=== PATIENT | female | born 1985 | race Hispanic/Latino ===

== ENCOUNTER 2023-11-22 18:19 | Observation (INO) | payer SELFPAY ==
--- NOTE | ~2023-11-22 | XR_ITS ---
EXAM: XR tibia fibula RT 2V DATE: 11/22/2023 18:36 HISTORY: cat bite to lower leg, r/o fb . COMPARISON: None available. FINDINGS: Normal mineralization. No fracture or dislocation. No lytic or blastic lesion. Joint space s are maintained. No erosion or periosteal change. Soft tissues within normal limits. IMPRESSION: No acute osseous finding in the right tibia/fibula. No radiopaque foreign body.. Reviewed, dictated and finalized at location K. IMPRESSION: No acute osseous finding in the right tibia/fibula. No radiopaque f oreign body..
--- NOTE | ~2023-11-22 | XR_ITS ---
EXAM: XR forearm RT 2V DATE: 11/22/2023 18:36 HISTORY: cat bite, r/o fb . COMPARISON: None available. FINDINGS: Normal mineralization. No fracture or dislocation. No lytic or blastic lesion. Joint space s are maintained. No erosion or periosteal change. Soft tissues within normal limits. IMPRESSION: No acute osseous finding in the right forearm. No radiopaque foreign body. Reviewed, dictated and finalized at location K. IMPRESSION: No acute osseous finding in the right forearm. No radiopaque foreig n body.
--- NOTE | 2023-11-22 18:22 | ED.ANIMALBIT ---
HPI - Animal Bite General Chief Complaint: Animal Bite <MEGHANN Jimenez Last Filed: 11/22/23 18:38> Stated Complaint: cat bite <MEGHANN Jimenez Last Filed: 11/22/23 18:38> Time Seen by Provider: 11/22/23 18:22 <MEGHANN Jimenez Last Filed: 11/22/23 18:38> Focused HPI: Patient is a 38-year-old female who presents the ED with report of cat bites. Patient is [place] speaking. [employer] utilized for assistance with translation. Patient reports she was bit by her house cat two nights ago. States it was dark outside and she accidentally stepped on her cat. She was bit in her right lower leg and sustained several scratch and bite river to her right forearm. Tetanus was updated yesterday. Today, she has developed increased pain and pressure in her lower extremity, causing her to have trouble with walking. Reports some drainage from the bite river on her leg. Denies fevers. Cat is not up-to-date on its vaccines, though has always been inside cat. Has been acting normally. GENERAL: Well-appearing, well-nourished, and in no acute distress. HEAD: Normocephalic, atraumatic. CHEST: Clear to auscultation. ?No respiratory distress. HEART: Regular rate and rhythm.? Radial pulses intact. MSK: Two large puncture wounds to R lateral lower calf, small amount of purulent drainage, surrounding erythema, skin taut and diffusely tender. Multiple small abrasions and pinpoint puncture wounds to R forearm, no significant signs of infection. No drainage from wounds on arm. NEURO: ?Alert and oriented x3. Patient screened in triage and initial orders placed.? ?Additional care and disposition to be based upon?diagnostic testing and treatment. <MEGHANN Jimenez Last Filed: 11/22/23 18:38> Source: patient <MEGHANN Jimenez Last Filed: 11/22/23 18:38> Mode of arrival: ambulatory <MEGHANN Jimenez Last Filed: 11/22/23 18:38> Limitations: no limitations <Amie Melvin PA-C - Last Filed: 11/22/23 18:38> History of Present Illness HPI narrative: patient is a 38-year-old female who presents emergency department with chief complaint of cat bites. The patient reports that on Tuesday she was bit by her family's cat and reports that she did not get started on antibiotics and has noticed swelling to her right lower extremity and her right forearm. Patient reports a low-grade fever. The patient reports that she went to the clinic and they did not start her on antibiotics but gave her a tetanus shot <Mauro Wall MD - Last Filed: 11/22/23 20:52> Related Data Allergies/Adverse Reactions: Allergies Allergy/AdvReac Type Severity Reaction Status Date / Time kiwi Allergy Unknown Verified 11/22/23 19:46 <Amie Melvin PA-C - Last Filed: 11/22/23 18:38> Review of Systems Review of Systems: A 10 system review of systems was completed on the patient and is negative except for what is stated in the HPI. Nursing and ancillary documentation was reviewed. <Mauro Wall MD - Last Filed: 11/22/23 20:52> Exam Narrative: GENERAL: Well-appearing, well-nourished, and in no acute distress. HEAD: Normocephalic, atraumatic. EYES: PERRLA and EOMI. ENT: Nares clear, no rhinorrhea or epistaxis. Mucous membranes moist. NECK: Supple. CHEST: Clear to auscultation. No respiratory distress. HEART: Regular rate and rhythm. No murmur heard. Normal peripheral pulses. ABDOMEN: Soft, nontender, nondistended, normal active bowel sounds. EXTREMITIES: Normal range of motion. No edema. SKIN: Warm, dry, no rash. there are 2 large puncture wounds to R lateral lower calf, small amount of purulent drainage, surrounding erythema, skin taut and diffusely tender. Multiple small abrasions and pinpoint puncture wounds to R forearm, no significant signs of infection. No drainage from wounds on arm. NEURO: No focal deficits. Alert and carol ann
[2023-11-22 18:23] VITALS: BP 115/88; PULSE 78; RESP 16; TEMP 36.7; O2SAT 99
[2023-11-22 18:55] LABS: Basophils Percent Auto 0.2 % (0.2-1.2); Eosinophils Absolute Auto 0.1 K/mm3 (0-0.3); Eosinophils Percent Auto 0.6 % (0-4.4); Hematocrit 40.9 % (37.0-47.0); Hemoglobin 13.3 g/dL (12.0-15.0); Immature Granulocyte Absolute 0.06 K/mm3 (0.00-0.031); Immature Granulocyte Percent A 0.4 % (0-0.5); Lymphocytes Absolute Auto 0.89 K/mm3 (0.9-3.2); Lymphocytes Percent Auto 5.5 % (18.3-44.2); Mean Corpuscular HGB Conc 32.5 g/dl (32-36); Mean Corpuscular Hemoglobin 29.1 pg (26-34); Mean Corpuscular Volume 89.5 fl (80-100); Mean Platelet Volume 10.3 fl (7.4-10.4); Monocytes Absolute Auto 0.9 K/mm3 (0.1-0.6); Monocytes Percent Auto 5.7 % (2.6-8.5); Neutrophils Absolute Auto 14.1 K/mm3 (1.3-6.7); Neutrophils Percent Auto 87.6 % (45.5-73.1); Platelet Count Result 255 k/mm3 (150-375); Red Blood Count 4.57 M/mm3 (4.2-5.4); Red Cell Distribution Width 14.8 % (11.5-14.5); White Blood Count 16.1 K/mm3 (4.5-10.0)
[2023-11-22 19:10] LABS: Anion Gap 8 mmol/L (4-12); Blood Urea Nitrogen 18 mg/dL (7-17); CRP 2.4 mg/dL (<1.0); Calcium 8.7 mg/dL (8.4-10.2); Carbon Dioxide 24 mmol/L (22-30); Chloride 106 mmol/L (98-107); Estimated CRCL calculation 98 ml/min; Estimated Glomerular Filt Rate > 60; Glucose 122 mg/dL (65-110); Potassium 3.8 mmol/L (3.4-5.0); Sodium 138 mmol/L (137-145)
[2023-11-22 19:38] VITALS: BP 109/61; PULSE 72; RESP 16; TEMP 37.2; O2SAT 99
[2023-11-22 19:44] VITALS: BP 109/61; PULSE 75; RESP 16; TEMP 37.2; O2SAT 99
[2023-11-22 19:50] LABS: Erythrocyte Sedimentation Rate 28 mm/hr (0-20)
[2023-11-22] MEDS: AMPICILLIN SULB 3 GM/NS 100 ML 3 GM/100 ML VIAL IVPB (19:57)
--- NOTE | 2023-11-22 20:27 | PM.IMHP ---
H&P: HPI History of Present Illness Date/Time: 11/22/23 20:27 Chief Complaint: cat bite Narrative: This is a 38-year-old female with can not past medical history patient presents to the emergency room due to swelling tenderness of the leg after her cat bit her this happened 3 days ago. Patient has bite and scratches marked on her right lower extremity right upper extremity forearm. Patient denies any fevers, rigors, chills. Patient had been to the urgent care which she was prescribed amoxicillin but it did not improve. Preliminary workup has been essentially nonrevealing. EXAM:? XR forearm RT 2V DATE: 11/22/2023 18:36 HISTORY: cat bite, r/o fb . COMPARISON:? None available. FINDINGS:? Normal mineralization. No fracture or dislocation. No lytic or blastic lesion. Joint spaces are maintained. No erosion or periosteal change. Soft tissues within normal limits. IMPRESSION: No acute osseous finding in the right forearm. No radiopaque foreign body. EXAM:? XR tibia fibula RT 2V DATE: 11/22/2023 18:36 HISTORY: cat bite to lower leg, r/o fb . COMPARISON:? None available. FINDINGS:? Normal mineralization. No fracture or dislocation. No lytic or blastic lesion. Joint spaces are maintained. No erosion or periosteal change. Soft tissues within normal limits. IMPRESSION: No acute osseous finding in the right tibia/fibula. No radiopaque foreign body.. Review of Systems Review of Systems: Cat scratch and bite Constitutional: Constitutional: Denies chills, Denies fatigue, Denies fever(s), Denies malaise, Denies night sweats, Denies poor appetite and Denies weakness Eyes: Eyes: Denies change in vision ENT: Denies dysphagia and Denies odynophagia Cardiovascular: Cardiovascular: Denies chest pain, Denies radiating jaw, neck or arm pain and Denies palpitations Respiratory: Respiratory: Denies chest congestion and Denies cough Gastrointestinal: Gastrointestinal: Denies abdominal pain, Denies diarrhea, Denies nausea and Denies vomiting Genitourinary: Genitourinary: Denies dysuria Musculoskeletal: Musculoskeletal: Reports other ( swelling tenderness cat bite right lower extremity/ right forearm) Integumentary/Breasts: Skin/Breast: Reports swelling, Reports skin swelling and Reports wounds Neurologic: Denies focal weakness and Denies Sensory deficit (Neuro) Psychiatric: Psychiatric: Reports no additional psychiatric complaints and Reports as per HPI Endocrine: Endocrine: Reports no additional endocrine complaints and Reports as per HPI Hematologic/Lymphatic: Hematologic/Lymphatic: Reports no additional hematologic/lymphatic complaints and Reports as per HPI Allergic/Immunologic: Allergic/Immunologic: Reports no additional allergic/immunologic complaints and Reports as per HPI [facility] Family History Family History (Updated 11/22/23 @ 22:14 by Oneida Mulligan RN) Grandparent Diabetes mellitus Social History Social History Smoking status: Never smoker Second hand tobacco smoke exposure: No Alcohol intake: never Substance use: never Substance use type: does not use Do You Feel Safe in your Home?: Yes Lack of Transportation: No Lack of Food: Never True Current Housing: I Have Housing Concerned About Future Housing: No Difficulty Paying Gas/Electric Bills: No Difficulty Paying for Meds: No Currently Unemployed: No Education: High School Diploma/GED Difficulty w/ Childcare or Family Care: No Spiritual care concerns: No Meds Home Medications and Allergies Home Medications Medication Instructions Recorded Confirmed Type No Home Medications 11/22/23 11/22/23 History Allergies Allergy/AdvReac Type Severity Reaction Status Date / Time kiwi Allergy Unknown Verified 11/22/23 19:46 Vital Signs Vital Signs - 24 hr 11/22/23 18:23 11/22/23 19:38 11/22/23 19:44 Temperature 98.1 F 99 F 99 F
[2023-11-22 20:39] VITALS: BP 110/74; PULSE 77; RESP 16; O2SAT 99
--- NOTE | 2023-11-22 20:58 | ADMGEN ---
This patient, Karen Burns, was admitted to Medical Room 349-01. Patient/family oriented to hospital policies and general routines including ID bracelet, bed and alarms, visiting hours, pain management, procedures, bathroom and other care routines, personal items, smoking policy, room service/diet, and visiting hours. Information on how to activate the Rapid Response Team has been discussed. Patient/Family are encouraged to report perceived risks to care and to ask questions if they do not understand what they are told or what they should do.
[2023-11-22 21:13] VITALS: BP 106/65; PULSE 73; RESP 16; TEMP 36.6; O2SAT 99
[2023-11-22 21:15] VITALS: BMI 29.4
[2023-11-23] MEDS: AMPICILLIN SULB 3 GM/NS 100 ML 3 GM/100 ML VIAL IVPB ×4 (03:48→20:33)
[2023-11-23] MEDS: ACETAMINOPHEN 500 MG TABLET 1000 MG PO ×3 (03:52→16:33)
[2023-11-23 04:33] VITALS: BP 97/48; PULSE 74; RESP 16; TEMP 36.9; O2SAT 96
[2023-11-23 08:32] VITALS: O2SAT 98
[2023-11-23 14:00] VITALS: BP 92/49; PULSE 60; RESP 16; TEMP 36.7; O2SAT 98
--- NOTE | 2023-11-23 14:33 | PM.IMPN ---
Progress Note: A&P Assessment and Plan (1) Cat bite: Code(s): W55.01XA - Bitten by cat, initial encounter Status: Acute (2) Cellulitis: Code(s): L03.90 - Cellulitis, unspecified Status: Acute Plan Continue Unasyn. Nurse to jayy the borders of the cellulitis Lovenox. Regular diet. Full code. Stable. Subjective Date/time seen: 11/23/23 14:33 Interval history: No acute overnight events. Patient believes her redness is gone down a bit. Exam Const: General: comfortable and no acute distress Eyes: Pupils: Equal, round and reactive pupils present Neck: Neck: supple Resp: Effort & Inspection: normal respiratory effort Auscultation: clear to auscultation bilaterally Cardio: Rate: regular rate Rhythm: regular rhythm GI: GI Palp: Yes Soft to palpation Extrem: General: edema (Erythema edema right lower extremity with 2 puncture wounds. ) Other: Right upper extremity with multiple scratch river Objective Data Vital Signs Vital Signs: Vital Signs - 24 hr 11/22/23 18:23 11/22/23 19:38 11/22/23 19:44 Temperature 98.1 F 99 F 99 F Pulse Rate 78 72 75 Respiratory Rate 16 16 16 Blood Pressure 115/88 109/61 109/61 Pulse Oximetry 99 99 99 Oxygen Delivery Room Air Room Air 11/22/23 20:39 11/22/23 21:13 11/23/23 04:33 Temperature 97.9 F 98.4 F Pulse Rate 77 73 74 Respiratory Rate 16 16 16 Blood Pressure 110/74 106/65 97/48 L Pulse Oximetry 99 99 96 Oxygen Delivery 11/23/23 08:32 11/23/23 08:00 Temperature Pulse Rate Respiratory Rate Blood Pressure Pulse Oximetry 98 Oxygen Delivery Room Air Room Air Intake/Output Intake/Output: Intake & Output 11/20/23 11/21/23 11/22/23 11/23/23 23:59 23:59 23:59 23:59 Intake Total 100 610 Balance 100 610 Meds/Results Medications: Active Medications Generic Name Dose Route Start Last Admin Trade Name Freq PRN Reason Stop Dose Admin Acetaminophen 1,000 mg 11/23/23 00:12 11/23/23 09:18 Acetaminophen 500 Mg Tablet PO 1,000 mg Q6H PRN Administration Mild Pain (1-3) or Fever Al Hydrox/Mg Hydrox/Simethicone 30 ml 11/23/23 00:12 Mag Hydrox/Al Hydrox/Simeth 30 Ml Udc PO Q6H PRN Indigestion Ampicillin Sodium/Sulbactam Sodium 3 gm in 100 mls @ 200 mls/hr 11/23/23 03:00 11/23/23 09:14 Unasyn 3 Gm/Ns 100 Ml IVPB 200 mls/hr Q6H JACINTA Administration Ondansetron HCl 4 mg 11/23/23 00:12 Ondansetron Inj 4 Mg/2 Ml Vial IV PUSH Q6H PRN Nausea And Vomiting Polyethylene Glycol 17 gm 11/23/23 00:12 Polyethylene Glycol 3350 17 Gm Powd.Pack PO QAM PRN Constipation Radiology Results: ITS Impressions Forearm X-Ray 11/22/23 18:59 IMPRESSION: No acute osseous finding in the right forearm. No radiopaque foreign body. Tibia/Fibula X-Ray 11/22/23 19:00 IMPRESSION: No acute osseous finding in the right tibia/fibula. No radiopaque foreign body.. Labs Labs: Laboratory Results - last 24 hr 11/22/23 18:45 WBC 16.1 H RBC 4.57 Hgb 13.3 Hct 40.9 MCV 89.5 MCH 29.1 MCHC 32.5 RDW 14.8 H Plt Count 255 MPV 10.3 Immature Gran % (Auto) 0.4 Neut % (Auto) 87.6 H Lymph % (Auto) 5.5 L [place] % (Auto) 5.7 Eos % (Auto) 0.6 Baso % (Auto) 0.2 Lymph # (Auto) 0.89 L [place] # (Auto) 0.9 H Eos # (Auto) 0.1 Baso # (Auto) 0.0 Abs Immat Gran (auto) 0.06 H Absolute Neuts (auto) 14.1 H Absolute Nucleated RBC 0.000 Nucleated RBC % 0.0 ESR 28 H Sodium 138 Potassium 3.8 Chloride 106 Carbon Dioxide 24 Anion Gap 8 BUN 18 H Creatinine 0.60 L Estim Creat Clear Calc 98 Estimated GFR > 60 Glucose 122 H Calcium 8.7 C-Reactive Protein 2.4 H
[2023-11-23 20:26] VITALS: BP 102/68; PULSE 72; RESP 20; TEMP 36.8; O2SAT 99
[2023-11-24] MEDS: AMPICILLIN SULB 3 GM/NS 100 ML 3 GM/100 ML VIAL IVPB ×4 (03:25→21:35)
[2023-11-24 04:04] VITALS: BP 105/57; PULSE 64; RESP 16; TEMP 36.2; O2SAT 97
[2023-11-24 06:12] LABS: Basophils Percent Auto 0.5 % (0.2-1.2); Eosinophils Absolute Auto 0.1 K/mm3 (0-0.3); Eosinophils Percent Auto 1.5 % (0-4.4); Hematocrit 39.3 % (37.0-47.0); Hemoglobin 12.7 g/dL (12.0-15.0); Immature Granulocyte Absolute 0.01 K/mm3 (0.00-0.031); Immature Granulocyte Percent A 0.1 % (0-0.5); Lymphocytes Absolute Auto 1.16 K/mm3 (0.9-3.2); Lymphocytes Percent Auto 13.5 % (18.3-44.2); Mean Corpuscular HGB Conc 32.3 g/dl (32-36); Mean Corpuscular Hemoglobin 28.9 pg (26-34); Mean Corpuscular Volume 89.5 fl (80-100); Mean Platelet Volume 10.5 fl (7.4-10.4); Monocytes Absolute Auto 0.7 K/mm3 (0.1-0.6); Monocytes Percent Auto 7.8 % (2.6-8.5); Neutrophils Absolute Auto 6.6 K/mm3 (1.3-6.7); Neutrophils Percent Auto 76.6 % (45.5-73.1); Platelet Count Result 244 k/mm3 (150-375); Red Blood Count 4.39 M/mm3 (4.2-5.4); Red Cell Distribution Width 14.9 % (11.5-14.5); White Blood Count 8.6 K/mm3 (4.5-10.0)
[2023-11-24 06:35] LABS: Anion Gap 6 mmol/L (4-12); Blood Urea Nitrogen 14 mg/dL (7-17); CRP 6.4 mg/dL (<1.0); Calcium 8.5 mg/dL (8.4-10.2); Carbon Dioxide 23 mmol/L (22-30); Chloride 108 mmol/L (98-107); Estimated CRCL calculation 117 ml/min; Estimated Glomerular Filt Rate > 60; Glucose 89 mg/dL (65-110); Potassium 3.9 mmol/L (3.4-5.0); Sodium 137 mmol/L (137-145)
[2023-11-24 07:02] LABS: Procalcitonin 0.1 ng/mL
[2023-11-24] MEDS: ACETAMINOPHEN 500 MG TABLET 1000 MG PO (08:25)
[2023-11-24] MEDS: ENOXAPARIN 40 MG/0.4 ML SYRINGE SUB-Q (08:26)
--- NOTE | 2023-11-24 13:16 | PM.IMPN ---
Progress Note: A&P Assessment and Plan (1) Cat bite: Code(s): W55.01XA - Bitten by cat, initial encounter Status: Acute (2) Cellulitis: Code(s): L03.90 - Cellulitis, unspecified Status: Acute Plan Pain is slightly improved at that right lower extremity but there is still significant erythema and edema. Hopefully home tomorrow morning if the erythema is resolved greater than 50% compared to the admission. Lovenox. Saline lock IV. Subjective Date/time seen: 11/24/23 13:16 Interval history: No acute overnight events. Patient reports pain at the right ankle and only minimally improved swelling. Review of Systems Review of Systems: All systems reviewed & are unremarkable except as noted in HPI and below (Subjective) Exam Const: General: comfortable and no acute distress Eyes: Pupils: Equal, round and reactive pupils present Neck: Neck: supple Resp: Effort & Inspection: normal respiratory effort Auscultation: clear to auscultation bilaterally Cardio: Rate: regular rate Rhythm: regular rhythm GI: GI Palp: Yes Soft to palpation Extrem: General: edema (Erythema edema right lower extremity with 2 puncture wounds. ) Other: Right upper extremity with multiple scratch river Objective Data Vital Signs Vital Signs: Vital Signs - 24 hr 11/23/23 14:00 11/23/23 20:26 11/24/23 04:04 Temperature 98.1 F 98.2 F 97.1 F L Pulse Rate 60 72 64 Respiratory Rate 16 20 16 Blood Pressure 92/49 L 102/68 105/57 L Pulse Oximetry 98 99 97 Oxygen Delivery 11/24/23 08:00 Temperature Pulse Rate Respiratory Rate Blood Pressure Pulse Oximetry Oxygen Delivery Room Air Intake/Output Intake/Output: Intake & Output 11/21/23 11/22/23 11/23/23 11/24/23 23:59 23:59 23:59 23:59 Intake Total 100 2009 590 Balance 100 2009 590 Meds/Results Medications: Active Medications Generic Name Dose Route Start Last Admin Trade Name Freq PRN Reason Stop Dose Admin Acetaminophen 1,000 mg 11/23/23 00:12 11/24/23 08:25 Acetaminophen 500 Mg Tablet PO 1,000 mg Q6H PRN Administration Mild Pain (1-3) or Fever Al Hydrox/Mg Hydrox/Simethicone 30 ml 11/23/23 00:12 Mag Hydrox/Al Hydrox/Simeth 30 Ml Udc PO Q6H PRN Indigestion Enoxaparin Sodium 40 mg 11/24/23 09:00 11/24/23 08:26 Enoxaparin 40 Mg/0.4 Ml Syringe SUB-Q 40 mg DAILY JACINTA Administration Ampicillin Sodium/Sulbactam Sodium 3 gm in 100 mls @ 200 mls/hr 11/23/23 03:00 11/24/23 08:26 Unasyn 3 Gm/Ns 100 Ml IVPB 200 mls/hr Q6H JACINTA Administration Ondansetron HCl 4 mg 11/23/23 00:12 Ondansetron Inj 4 Mg/2 Ml Vial IV PUSH Q6H PRN Nausea And Vomiting Polyethylene Glycol 17 gm 11/23/23 00:12 Polyethylene Glycol 3350 17 Gm Powd.Pack PO QAM PRN Constipation Radiology Results: ITS Impressions Forearm X-Ray 11/22/23 18:59 IMPRESSION: No acute osseous finding in the right forearm. No radiopaque foreign body. Tibia/Fibula X-Ray 11/22/23 19:00 IMPRESSION: No acute osseous finding in the right tibia/fibula. No radiopaque foreign body.. Labs Labs: Laboratory Results - last 24 hr 11/24/23 05:52 WBC 8.6 RBC 4.39 Hgb 12.7 Hct 39.3 MCV 89.5 MCH 28.9 MCHC 32.3 RDW 14.9 H Plt Count 244 MPV 10.5 H Immature Gran % (Auto) 0.1 Neut % (Auto) 76.6 H Lymph % (Auto) 13.5 L [place] % (Auto) 7.8 Eos % (Auto) 1.5 Baso % (Auto) 0.5 Lymph # (Auto) 1.16 [place] # (Auto) 0.7 H Eos # (Auto) 0.1 Baso # (Auto) 0.0 Abs Immat Gran (auto) 0.01 Absolute Neuts (auto) 6.6 Absolute Nucleated RBC 0.000 Nucleated RBC % 0.0 Sodium 137 Potassium 3.9 Chloride 108 H Carbon Dioxide 23 Anion Gap 6 BUN 14 Creatinine 0.50 L Estim Creat Clear Calc 117 Estimated GFR > 60 Glucose 89 Calcium 8.5 Magnesium 2.0 C-Reactive Protein 6.4 H Procalcitonin 0.1
[2023-11-24 14:00] VITALS: BP 93/46; PULSE 58; RESP 18; TEMP 36.3; O2SAT 100
[2023-11-24 21:41] VITALS: BP 108/57; PULSE 61; RESP 18; TEMP 36.3; O2SAT 97
[2023-11-25] MEDS: AMPICILLIN SULB 3 GM/NS 100 ML 3 GM/100 ML VIAL IVPB ×2 (04:24→08:33)
[2023-11-25 05:20] VITALS: BP 135/76; PULSE 70; RESP 18; TEMP 36.2; O2SAT 93
[2023-11-25 06:14] LABS: Basophils Percent Auto 0.5 % (0.2-1.2); Eosinophils Absolute Auto 0.2 K/mm3 (0-0.3); Eosinophils Percent Auto 2.4 % (0-4.4); Hemoglobin 13.2 g/dL (12.0-15.0); Immature Granulocyte Absolute 0.03 K/mm3 (0.00-0.031); Immature Granulocyte Percent A 0.4 % (0-0.5); Lymphocytes Absolute Auto 1.31 K/mm3 (0.9-3.2); Lymphocytes Percent Auto 17.4 % (18.3-44.2); Mean Corpuscular HGB Conc 32.2 g/dl (32-36); Mean Corpuscular Hemoglobin 29.3 pg (26-34); Mean Corpuscular Volume 90.9 fl (80-100); Mean Platelet Volume 10.4 fl (7.4-10.4); Monocytes Absolute Auto 0.5 K/mm3 (0.1-0.6); Monocytes Percent Auto 6.2 % (2.6-8.5); Neutrophils Absolute Auto 5.5 K/mm3 (1.3-6.7); Neutrophils Percent Auto 73.1 % (45.5-73.1); Platelet Count Result 256 k/mm3 (150-375); Red Blood Count 4.51 M/mm3 (4.2-5.4); Red Cell Distribution Width 14.6 % (11.5-14.5); White Blood Count 7.6 K/mm3 (4.5-10.0)
[2023-11-25 06:31] LABS: Anion Gap 10 mmol/L (4-12); Blood Urea Nitrogen 14 mg/dL (7-17); Calcium 8.8 mg/dL (8.4-10.2); Carbon Dioxide 19 mmol/L (22-30); Chloride 108 mmol/L (98-107); Estimated CRCL calculation 117 ml/min; Estimated Glomerular Filt Rate > 60; Glucose 92 mg/dL (65-110); Potassium 3.8 mmol/L (3.4-5.0); Sodium 137 mmol/L (137-145)
[2023-11-25 06:43] LABS: Procalcitonin 0.1 ng/mL
--- NOTE | 2023-11-25 08:30 | PM.DS ---
DS: Admitting Diagnosis Discharge Date November 25, 2023 Admitting Diagnosis Cellulitis DS: Discharge Diagnosis Discharge Diagnosis (1) Cat bite: Code(s): W55.01XA - Bitten by cat, initial encounter Status: Acute (2) Cellulitis: Code(s): L03.90 - Cellulitis, unspecified Status: Acute DS: Summary Hospital Course Hospital Course: 38-year-old with no prior past medical history presented to the ED reporting being bitten by her house cat. She got bit in her right lower leg and there were scratch river on her right forearm. Tetanus was updated. She developed cellulitis. She was treated with Unasyn for 3 days and the erythema and edema greatly improved. The were no apparent complications. Patient is discharged in stable condition to home to take another 10 day course of amoxicillin 1000 mg p.o. b.i.d.. Adverse effects risk and benefits of medication discussed and the patient was understanding and agreement with this plan. She was full code. Time Spent with Patient Time attestation: Total time spent providing and/or coordinating discharge services: Exam Const: General: comfortable and no acute distress Eyes: Pupils: Equal, round and reactive pupils present Neck: Neck: supple Resp: Effort & Inspection: normal respiratory effort Auscultation: clear to auscultation bilaterally Cardio: Rate: regular rate Rhythm: regular rhythm GI: GI Palp: Yes Soft to palpation Extrem: General: edema (Erythema edema right lower extremity with 2 puncture wounds. ) Other: Right upper extremity with multiple scratch river. Right lower extremity edema overlying the dorsal and lateral surface of the ankle. Improved. DS: Data Data Completed and Pending Labs on day of discharge: Labs from last 24 hours 11/25/23 05:51 WBC 7.6 RBC 4.51 Hgb 13.2 Hct 41.0 MCV 90.9 MCH 29.3 MCHC 32.2 RDW 14.6 H Plt Count 256 MPV 10.4 Immature Gran % (Auto) 0.4 Neut % (Auto) 73.1 Lymph % (Auto) 17.4 L [place] % (Auto) 6.2 Eos % (Auto) 2.4 Baso % (Auto) 0.5 Lymph # (Auto) 1.31 [place] # (Auto) 0.5 Eos # (Auto) 0.2 Baso # (Auto) 0.0 Abs Immat Gran (auto) 0.03 Absolute Neuts (auto) 5.5 Absolute Nucleated RBC 0.000 Nucleated RBC % 0.0 Sodium 137 Potassium 3.8 Chloride 108 H Carbon Dioxide 19 L Anion Gap 10 BUN 14 Creatinine 0.50 L Estim Creat Clear Calc 117 Estimated GFR > 60 Glucose 92 Calcium 8.8 Procalcitonin 0.1 Discharge Plan Discharge Attending physician on discharge: Jessica Montana Consulting providers: Davy Holbrook; Amie Melvin Discharging Clinician: Jessica Montana Patient Disposition: Home, Self-Care Activity: november shower Diet: as tolerated Patient Instructions: Antibiotic Form, Cellulitis (GEN) Stand Alone Forms: General Discharge Information Follow-up/Referrals: Davy Holbrook MD [Physician] - 2 Weeks Discharge Medications: New amoxicillin-pot clavulanate 875-125 mg tablet 1 tablet PO Q12H 10 Days Qty: 20 0RF Date of admission: 11/22/23 20:09 Primary Care Provider: PHYSICIAN,LAND LEASING INFORMATION CLERK Admitting Provider: Jatin Thompson V. Attending physician on admission: Jatin Thompson V. Condition: Stable
[2023-11-25] MEDS: ENOXAPARIN 40 MG/0.4 ML SYRINGE SUB-Q (08:34)
== END 2023-11-25 10:30 | disposition home or self-care (01) ==
LOC: ANHED 19:59 → ANH3MED 20:22
PROVIDERS: Physician Assistant; Admitting Provider Internal Medicine; Emergency Provider Emergency Medicine; Visit Provider General Practice
DX: S81.851A Open bite, right lower leg, initial encounter (principal); L03.115 Cellulitis of right lower limb; S50.811A Abrasion of right forearm, initial encounter; W55.01XA Bitten by cat, initial encounter
CPT/HCPCS: 36415; 73090; 73590; 80048; 83735; 84145; 85025; 85652; 86140; 96365; 96372; 99285; A9270; G0378; J0295; J1650

== ENCOUNTER 2024-11-12 08:20 | Outpatient (CLI) | payer MEDICAID, SELFPAY ==
--- NOTE | ~2024-11-12 | US_ITS ---
COMPLETE AND LIMITED MATERNAL ULTRASOUND (Doppler ultrasound interrogation techniques used as n eeded for this exam.) Ordering provider: Joseluis Rankin, History: . routine care . Comparison: None. Findings: : Single intrauterine fetus with heart rate measured at 142 bpm which is within normal limits. Transverse lie. Presentation: Variable. Placenta: Anterior. Distance to cervix is out of range. Amniotic fluid: The DVP is 7 cm. --SCREENING OF ANATOMY: Heart (4 chambers): Seen and unremarkable. Brain survey: Unremarkable. Cerebral ventricles, cerebellum, cisterna magna, and the nuchal fold: Normal. Lateral ventricles and measures 0.9 cm. Cerebellum measures 2.1 cm. Cisterna magna measures 0.4 cm. Nuchal fold: Measures 0.5 cm. Abdomen: Unremarkable. Diaphragm on the stomach: Normal. Cord insertion: Unremarkable. 3 vessel cord: Present and unremarkable. Bladder: Unremarkable. Kidneys: Unremarkable. Spine: Unremarkable. -- BIOMETRICS: BPD: 55.6 mm = 23 weeks and 0 days. HC: 213.1 mm = 23 weeks and 3 days FL: 39.1 mm = 22 weeks and 4 days. AC: 197.5 mm = 24 weeks and 3 days. CI 71.11 HC/AC: 1.08 FL/BPD: 70.34 (71 -87) FL/AC: 19.8(20-24) Mean US age is 23 weeks and 3 days for an WILL on March 08, 2025 which is concordant with Extrapolated weight is 606.3 g EFW/GP 63.2%. Three vessel cord is seen. Amniotic fluid volume is subjectively within normal limits. No evidence for significant placental anomalies including placenta previa. The cervical length is 2.5 cm which is within normal limits. MATERNAL: unremarkable limited maternal ultrasound. IMPRESSION: Single live fetus of 23 weeks and 3 days. WILL is March 08, 2025. Reviewed, dictated and finalized at location A.
== END 2024-11-12 08:21 | disposition home or self-care (01) ==
PROVIDERS: Visit Provider Obstetrics & Gynecology
DX: Z34.82 Encounter for supervision of other normal pregnancy, second trimester (principal); Z3A.00 Weeks of gestation of pregnancy not specified
CPT/HCPCS: 76805